=== PATIENT | male | born 1975 | race Caucasian/White ===

== ENCOUNTER 2024-04-21 22:27 | Observation (INO) | payer OTHER, SELFPAY ==
--- NOTE | ~2024-04-21 | CT_ITS ---
EXAMINATION: CTA brain carotid DATE: 04/21/2024 23:28 INDICATION: Altered mental status. TECHNIQUE: Computed tomographic angiography (CTA) of the head was performed without and with 100 mL O mnipaque-350 intravenous contrast. CTA of the neck was performed with intravenous contrast. Automated exposure control and iterative reconstruction technique were employed. The dose-length product was 1 698.29 mGy-cm. Maximum intensity projection and volume rendered 3D-reconstructions were created by ad technologist on a separate workstation. COMPARISON: None. FINDINGS: HEAD CTA: There is no intracranial hemorrhage, acute infarction, or abnormal intracranial mass lesion . The ventricles are normal in size. The orbits are normal. There is mild mucosal thickening in the p aranasal sinuses. The mastoid air cells are normal. The vertebral arteries are codominant. There is n o significant stenosis of basilar artery or the posterior cerebral arteries. There is no significant stenosis of the intracranial internal carotid arteries or anterior or middle cerebral arteries. Anter ior communicating artery is normal. The posterior communicating arteries are normal. There is no aneu rysm. NECK CTA: There is mild scarring at the lung apices. There are no pathologically enlarged lymph nodes . There is no significant stenosis of the vertebral arteries. There is no significant plaque in the p roximal internal carotid arteries. There is 0% stenosis of the proximal right internal carotid artery relative to normal distal artery lumen diameter (NASCET criteria). There is 0% stenosis of the proxi mal left internal carotid artery relative to normal distal artery lumen diameter. There is moderate c ervical spondylosis. IMPRESSION: 1. Normal brain. No aneurysm or significant intracranial arterial stenosis. 2. 0% stenosis of the proximal internal carotid arteries relative to normal distal artery lumen diame ters (NASCET criteria). Reviewed, dictated and finalized at location E. IMPRESSION: 1. Normal brain. No aneurysm or significant intracranial arterial stenosis. 2. 0% stenosis of the proximal internal carotid arteries relative to normal dis mandie artery lumen diameters (NASCET criteria).
--- NOTE | ~2024-04-21 | MR_ITS ---
EXAMINATION: MR brain/brain stem wo/w con DATE: 04/22/2024 09:17 INDICATION: Transient global amnesia TECHNIQUE: Magnetic resonance imaging (MRI) of the brain and brainstem was performed without and with 15 mL Multihance intravenous contrast. Sequences included sagittal and axial T1-weighted SE, axial d iffusion-weighted FS SE, axial 3D SWAN, axial T2-weighted FLAIR, and axial T2-weighted FSE. Postcontr ast axial and coronal T1-weighted SE was obtained. Apparent diffusion coefficient (ADC) maps were cre ated. COMPARISON: None. FINDINGS: There are no areas of restricted diffusion to suggest acute infarction. No intracranial hemorrhage or abnormal intracranial mass lesion. There are no intraparenchymal signal abnormalities seen on the ot her pulse sequences. The ventricles are symmetric and normal in size. There are no abnormal extra-axi al fluid collections. Flow voids are seen in the cerebral arteries on the T2-weighted sequences consi stent with their expected patency. Mild mucoperiosteal thickening in the bilateral ethmoid and fronta l sinuses. Visualized orbits and soft tissues are unremarkable. There are no areas of abnormal enhanc ement on the post contrast images. IMPRESSION: 1. Normal brain. No acute intracranial process. Reviewed, dictated and finalized at location A.
[2024-04-21 22:37] VITALS: BP 130/86; PULSE 69; RESP 20; TEMP 36.5; O2SAT 98
--- NOTE | 2024-04-21 22:57 | ED.AMS ---
HPI - Altered Mental Status General Chief Complaint: Altered Mental Status Stated Complaint: confusion Time Seen by Provider: 04/21/24 22:50 History of Present Illness HPI narrative: 49-year-old male presents emergency department for evaluation for altered mental status. 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 Patient's is still looking for around 10:00 p.m. and ultimately did find him at the cross fit. Patient was confused on while he was still there. Patient continues with repetitive questions. Patient denies any pain or injury. Patient does not recall the class. Patient is confused about current events. states patient is typically very fit and does not abuse drugs or use alcohol. Related Data Home Medications Medication Instructions Recorded Confirmed No Home Medications 04/22/24 04/22/24 Allergies Allergy/AdvReac Type Severity Reaction Status Date / Time No Known Allergies Allergy Verified 04/21/24 22:43 Review of Systems Review of Systems: All systems reviewed & are unremarkable except as noted in HPI and below PMFSH Family History Family History (Updated 04/22/24 @ 02:52 by Lyssa Martinez RN) Grandparent Cerebrovascular accident Hypertension Sibling Diabetes mellitus Hypertension Social History Social History Smoking status: Former smoker Alcohol intake: never Substance use: current Substance use type: marijuana Other substance usage details: SMOKES 2X PER DAY Do You Feel Safe in your Home?: Yes Lack of Transportation: No Lack of Food: Never True Current Housing: I Have Housing Concerned About Future Housing: No Difficulty Paying Gas/Electric Bills: No Difficulty Paying for Meds: No Currently Unemployed: No Education: Bachelor's Degree Difficulty w/ Childcare or Family Care: No Spiritual care concerns: No Exam Narrative: APPEARANCE: Well appearing, no pain, no distress, well-nourished. HEAD: normocephalic, atraumatic. EYES: PERRLA/EOMI, conjunctivae clear. NOSE: Normal no drainage EARS:TMS clear with good light reflex. THROAT: Pharynx clear, no exudate. NECK: Supple. No adenopathy, no masses. RESPIRATORY: Airway patent, respirations nonlabored. Clear to auscultation bilaterally, no rales, rhonchi, wheezing. CARDIOVASCULAR: Regular rate and rhythm without murmurs rubs or gallops. ABDOMINAL: Soft, nontender, nondistended, normal bowel sounds MUSCULOSKELETAL: Moves all extremities. Strength/ROM intact, No edema, No calf tenderness. NEURO: Alert. Cranial nerves II through XII intact. Grossly intact. Patient does have repetitive questioning SKIN: Warm, dry. Normal Color Course Vital Signs Vital signs: Vital Signs Temperature 97.7 F 04/21/24 22:37 Pulse Rate 69 04/21/24 22:37 Respiratory Rate 20 04/21/24 22:37 Blood Pressure 130/86 04/21/24 22:37 Pulse Oximetry 98 04/21/24 22:37 Oxygen Delivery Room Air 04/21/24 22:37 Temperature 97.7 F 04/21/24 22:37 Pulse Rate 70 04/22/24 04:00 Respiratory Rate 20 04/21/24 22:37 Blood Pressure 130/86 04/21/24 22:37 Pulse Oximetry 100 04/21/24 23:52 Oxygen Delivery Room Air 04/22/24 02:57 MDM - Altered Mental Status Differential Diagnosis Differential diagnosis: Likely alcoholic intoxication, altered mental status, delirium, dementia, hypoglycemia, hyponatremia, subarachnoid hemorrhage and sepsis Lab Data Attestation: I reviewed the patient's lab results. 04/21/24 22:56 04/21/24 23:07 Labs: Lab Results 04/21/24 04/21/24 04/21/24 Range/Units 22:56 22:56 22:56 WBC 6.9 (4.5-10.0) K/mm3 RBC 4.68 (4.6-6.20) M/mm3 Hgb 14.6 (14.0-18.0) g/dL Hct 41.2 L (42.0-52.0) % MCV 88.0 (80-100) fl MCH 31.2 (26-34) pg MCHC 35.4 (32-36) g/dl RDW 11.9 (11.5-14.5) % Plt Count 224 (150-375) k/mm3 MPV 9.1 (7.4-10.4) fl Immature Gran % (Auto) 0.1 (
[2024-04-21 23:04] LABS: Basophils Percent Auto 0.4 % (0.2-1.2); Eosinophils Percent Auto 0.1 % (0-4.4); Hematocrit 41.2 % (42.0-52.0); Hemoglobin 14.6 g/dL (14.0-18.0); Immature Granulocyte Absolute 0.01 K/mm3 (0.00-0.031); Immature Granulocyte Percent A 0.1 % (0-0.5); Lymphocytes Absolute Auto 1.57 K/mm3 (0.9-3.2); Lymphocytes Percent Auto 22.9 % (18.3-44.2); Mean Corpuscular HGB Conc 35.4 g/dl (32-36); Mean Corpuscular Hemoglobin 31.2 pg (26-34); Mean Platelet Volume 9.1 fl (7.4-10.4); Monocytes Absolute Auto 0.4 K/mm3 (0.1-0.6); Monocytes Percent Auto 5.4 % (2.6-8.5); Neutrophils Absolute Auto 4.9 K/mm3 (1.3-6.7); Neutrophils Percent Auto 71.1 % (45.5-73.1); Platelet Count Result 224 k/mm3 (150-375); Red Blood Count 4.68 M/mm3 (4.6-6.20); Red Cell Distribution Width 11.9 % (11.5-14.5); White Blood Count 6.9 K/mm3 (4.5-10.0)
[2024-04-21 23:14] LABS: INR 1.1; Partial Thromboplastin Time 26.8 Seconds (22.3-36.8); Prothrombin Time 14.4 Seconds (11.1-14.7)
[2024-04-21 23:16] LABS: Alanine Aminotransferase 34 U/L (6-50); Albumin Level 4.7 g/dL (3.5-5.1); Alkaline Phosphatase 66 U/L (38-126); Anion Gap 9 mmol/L (4-12); Aspartate Amino Transferase 47 U/L (17-59); Bilirubin,Total 1.1 mg/dL (0.2-1.3); Blood Urea Nitrogen 20 mg/dL (9-20); Calcium 9.3 mg/dL (8.4-10.2); Carbon Dioxide 28 mmol/L (22-30); Chloride 100 mmol/L (98-107); Creatine Kinase 358 U/L (55-170); Estimated CRCL calculation 70 ml/min; Estimated Glomerular Filt Rate > 60; Ethanol < 10 mg/dL (<10); Glucose 114 mg/dL (65-110); Potassium 3.8 mmol/L (3.4-5.0); Sodium 137 mmol/L (137-145)
[2024-04-21 23:52] VITALS: O2SAT 100
[2024-04-21 23:59] LABS: Estimated CRCL calculation 61 ml/min; Estimated Glomerular Filt Rate 54
[2024-04-22] VITALS (11 sets, daily range): BP systolic 121–136; BP diastolic 72–81; PULSE 47–70; RESP 14–20; TEMP 35.6–36.7; O2SAT 98–100; BMI 23.6
--- NOTE | 2024-04-22 | ECHO_ITS ---
Patient Info Name: Galileo Fall Age: 49 years : 1975 Gender: Male Ht: 70 in Wt: 164 lbs BSA: 1.92 m2 HR: 63 bpm BP: 121 / 81 mmHg Technical Quality: Good Exam Date: 04/22/2024 10:14 AM Exam Location: Echo Lab Patient Status: Inpatient Admit Date: 04/22/2024 Staff Ordering Physician: Yudelka Padgett APRN Candy Spreader Helper: Judd Rosario RDCS Attending Provider: Argelia Cardenas MD Referring Physician: Dayron BRIAN; Exam Type: CA echo doppler w bubble study Study Info Indications - amnesia Complete two-dimensional, color flow and Doppler transthoracic echocardiogram is performed with agitated saline. Contrast/Agitated Saline Contrast/Ag. Saline: Agitated Saline Amount: 8.00 ml Existing IV Access: Yes Summary 1. Left ventricular chamber dimension is normal. 2. Left ventricular systolic function is normal, estimated at 60-65%. 3. The left ventricular diastolic function is normal. 4. E/e' 6 is not elevated. 5. Left atrial chamber dimension is mildly enlarged. 6. There is trace mitral valve regurgitation. 7. There is trace tricuspid valve regurgitation. 8. No pulmonary hypertension, estimated pulmonary arterial systolic pressure is 20 mmHg. Left Ventricle E/e' 6 is not elevated. Left ventricular chamber dimension is normal. Left ventricular systolic function is normal, estimated at 60-65%. The left ventricular diastolic function is normal. Right Ventricle Right ventricular chamber dimension is normal. Right ventricular systolic function is normal. Left Atria Left atrial chamber dimension is mildly enlarged. Right Atria Right atrial chamber dimension is normal. Atrial Septum Agitated saline injection with valsalva maneuver opacified right side cardiac chambers without shunt to left side cardiac chambers. Intact interatrial septum visualized by 2D and agitated saline imaging. Aortic Valve The aortic valve is trileaflet. There is no aortic valve stenosis. There is no aortic valve regurgitation. Pulmonic Valve There is no pulmonic regurgitation. Mitral Valve There is no mitral valve stenosis. There is trace mitral valve regurgitation. Tricuspid Valve There is trace tricuspid valve regurgitation. No pulmonary hypertension, estimated pulmonary arterial systolic pressure is 20 mmHg. Pericardium/Pleural There is no pericardial effusion. Inferior Vena Cava Normal inferior vena cava with >50% collapse upon inspiration consistent with normal right atrial pressure, 5 mmHg. Aorta The aortic root size at the sinus of Valsalva is normal. Left Ventricular Outflow Tract Name Value Normal LVOT 2D LVOT Diameter 2.1 cm LVOT Doppler LVOT Peak Gradient 3 mmHg LVOT Mean Gradient 2 mmHg LVOT VTI 20 cm LVOT VTI/AV VTI Ratio 0.7 LVOT Stroke Volume 69 ml LVOT CO 3.7 l/min LVOT CI 1.9 l/min/m2 Pulmonic Valve Name Value N
[2024-04-22 00:15] LABS: Influenza A QL RT-PCR Negative (Negative); Influenza B QL RT-PCR Negative (Negative); RSV RNA, RT-PCR Negative (Negative); SARS-CoV-2 RNA PCR Negative (Negative)
[2024-04-22 00:18] LABS: Amphetamine Screen Urine Negative (Negative); Barbiturate Screen Urine Negative (Negative); Benzodiazepines Screen Urine Negative (Negative); Cannabinoid Screen Urine Positive (Negative); Cocaine Screen Urine Negative (Negative); Methadone Screen Urine Negative (Negative); Opiate Screen Urine Negative (Negative); Phencyclidine Screen Urine Negative (Negative)
--- NOTE | 2024-04-22 00:25 | ECG_ITS ---
Test Date: 2024-04-22 00:30:56 Measurements Intervals [place] Rate: 57 P: 49 SC: 151 QRS: 14 QRSD: 102 T: 35 QT: 428 QTc: 418 Interpretive Statements SINUS BRADYCARDIA WITH SINUS ARRHYTHMIA INCOMPLETE RIGHT BUNDLE BRANCH BLOCK BORDERLINE ECG No previous ECG available for comparison Electronically Signed On 04-22-2024 07:13:55 CDT by Graham Krishna D.O.
[2024-04-22 00:33] LABS: Appearance Urine Clear (Clear); Bilirubin Urine Negative (Negative); Blood Urine Negative (Negative); Color Urine Yellow (Yellow); Glucose Urine UA Negative (Negative); Ketones Urine Trace mg/dL (Negative); Leukocyte Esterase Ur Negative LEU/UL (Negative); Nitrate Urine Negative (Negative); Protein Urine Negative (Negative); Specific Grav Ur 1.026 (1.001-1.035); Urobilinogen Urine 0.2 mg/dL (<2.0)
[2024-04-22] MEDS: ACETAMINOPHEN 500 MG TABLET 1000 MG PO (00:37)
[2024-04-22 00:46] LABS: Add Urine Microscopic? NO
--- NOTE | 2024-04-22 02:49 | ADMGEN ---
This patient, Galileo Fall, was admitted to 2 Medical Room 256-. Patient/family oriented to hospital policies and general routines including ID bracelet, bed and alarms, visiting hours, pain management, procedures, bathroom and other care routines, personal items, smoking policy, room service/diet, and visiting hours. Information on how to activate the Rapid Response Team has been discussed. Patient/Family are encouraged to report perceived risks to care and to ask questions if they do not understand what they are told or what they should do.
--- NOTE | 2024-04-22 08:28 | PM.IMHP ---
H&P: HPI History of Present Illness Date/Time: 04/22/24 08:28 Chief Complaint: cofusion Narrative: Mr. Fall is a 49-year-old male with a limited PMHx: He denies any daily a medication use. He was brought in via POV by his who provides most of all the HPI. She reports patient was scheduled to go to [employer] around 1600. Mrs. Fall reports pt did not come home at the time expected, after several hours she decided to attend the last known place of pt. She found him at the [employer] facility, that had closed, and everyone had left, she recalls that pt was confused, trying to find his phone, he was not able to drive his truck(it was parked near the entrance the truck door was open,engine running, pt not inside vehicle) he ws not able to collect his thoughts nor find his phone. Mrs. Fall reports she put pt in her car and while she was driving home, Mr. Fall continued to ask same questions over and over, he was not able to recall events prior to going to [facility], nor was he able to explain anything that occurred during his [employer] class, this is when she decided to have pt evaluated in the emergency department. ED work-up reveals: Upon ED arrival patient continues with repetitive questions and confusion unable to recall activities occurring at [facility]. CT/CTA of the brain and carotid was unrevealing UDS was positive for cannabinoids, EKG showed bradycardia. Vitals stable, total creatinine elevated 358, UA unremarkable, UDS positive for cannabinoids. Review of Systems Review of Systems: All systems reviewed & are unremarkable except as noted in HPI and below [facility] Family History Family History Grandparent Cerebrovascular accident Hypertension Sibling Diabetes mellitus Hypertension Social History Social History Smoking status: Former smoker Alcohol intake: never Substance use: current Substance use type: marijuana Other substance usage details: SMOKES 2X PER DAY Do You Feel Safe in your Home?: Yes Lack of Transportation: No Lack of Food: Never True Current Housing: I Have Housing Concerned About Future Housing: No Difficulty Paying Gas/Electric Bills: No Difficulty Paying for Meds: No Currently Unemployed: No Education: Bachelor's Degree Difficulty w/ Childcare or Family Care: No Spiritual care concerns: No Meds Home Medications and Allergies Home Medications Medication Instructions Recorded Confirmed Type No Home Medications 04/22/24 04/22/24 History Allergies Allergy/AdvReac Type Severity Reaction Status Date / Time No Known Allergies Allergy Verified 04/22/24 15:35 Vital Signs Vital Signs - 24 hr 04/21/24 22:37 04/21/24 23:52 04/22/24 02:57 Temperature 97.7 F Pulse Rate 69 Respiratory Rate 20 Blood Pressure 130/86 Pulse Oximetry 98 100 Oxygen Delivery Room Air Room Air Room Air 04/22/24 04:00 04/22/24 06:00 04/22/24 06:05 Temperature 96.4 F L 96.4 F L Pulse Rate 70 50 L 51 L Respiratory Rate 20 20 Blood Pressure 125/74 129/72 Pulse Oximetry 100 100 Oxygen Delivery 04/22/24 06:15 04/22/24 06:00 Temperature 96.0 F L 96.4 F L Pulse Rate 63 50 L Respiratory Rate 20 20 Blood Pressure 121/81 125/74 Pulse Oximetry 98 100 Oxygen Delivery Exam Narrative: General: A well-developed, nontoxic-appearing gentlemen, sitting up in bed. HEENT: PERRL, EOMI. Oral mucosa moist. Neck: Supple. No midline cervical tenderness. Respiratory: Respirations are non- labored and lungs are clear to auscultation bilaterally. Cardiovascular: Regular rate and rhythm with S1-S2. Gastrointestinal: Abdomen is soft, non-tender, and non-distended with positive bowel sounds. Skin: Warm and dry. No rash or lesions on limited exam. Extremities: No cyanosis, clubbing, or edema. Radial and pedal pulses intact. Neurological: Alert an
--- NOTE | 2024-04-22 09:55 | WPDNEURCNPN ---
Assessment and Plan Assessment and plan (1) Episode of confusion: Code(s): R41.0 - Disorientation, unspecified Status: Acute Plan Galileo Fall is a 49 year old male with no significant past medical history presenting for evaluation of amnesia. Differential diagnosis includes transient global amnesia vs TIA vs focal seizure. UDS was positive for cannabinoids so drug effect is also possible. MRI brain was normal. - Obtain echo with bubble study - Will check hypercoagulability labs given his younger age - Obtain routine EEG -- could be done as outpatient if patient is discharged before Wednesday - As precaution, will have him start a baby aspirin 81mg daily - Check LDL, if over 70, start statin - Discussed no driving until he is event free for at least six months Consult date: 04/22/24 Reason for consult: Amnesia HPI: Galileo Fall is a 49 year old male with no significant past medical history presenting for evaluation of amnesia. Per chart review, patient left for his [employer] class around 1700 on 04/21. However, he did not come home afterwards at the expected time. was looking for him around 2200 and ultimately found him at the [employer] class. He was confused as to why he was still there. He was asking repetitive questions. He does not have any recollection of the class. In the ER patient was asking repetitve questions still. His BP was in the 130s systolic. CT and CTA of the brain/carotid was unrevealing. His UDS was positive for cannabinoids. EKG showed sinus bradycardia. MRI brain done this morning was read as normal. No family history of stroke/[place] at early age. No family history of epilepsy. Patient was still somewhat confused this morning, but seems to improving throughout the day. Review of Systems Review of Systems: All systems reviewed & are unremarkable except as noted in HPI and below PMFSH Family History Family History Grandparent Cerebrovascular accident Hypertension Sibling Diabetes mellitus Hypertension Social History Social History Smoking status: Former smoker Alcohol intake: never Substance use: current Substance use type: marijuana Other substance usage details: SMOKES 2X PER DAY Do You Feel Safe in your Home?: Yes Lack of Transportation: No Lack of Food: Never True Current Housing: I Have Housing Concerned About Future Housing: No Difficulty Paying Gas/Electric Bills: No Difficulty Paying for Meds: No Currently Unemployed: No Education: Bachelor's Degree Difficulty w/ Childcare or Family Care: No Spiritual care concerns: No Meds Home Medications and Allergies Home Medications Medication Instructions Recorded Confirmed Type No Home Medications 04/22/24 04/22/24 History Allergies Allergy/AdvReac Type Severity Reaction Status Date / Time No Known Allergies Allergy Verified 04/21/24 22:43 Vital Signs Vital Signs - 24 hr 04/21/24 22:37 04/21/24 23:52 04/22/24 02:57 Temperature 36.5 C Pulse Rate 69 Respiratory Rate 20 Blood Pressure 130/86 Pulse Oximetry 98 100 Oxygen Delivery Room Air Room Air Room Air 04/22/24 04:00 04/22/24 06:00 04/22/24 06:05 Temperature 35.8 C L 35.8 C L Pulse Rate 70 50 L 51 L Respiratory Rate 20 20 Blood Pressure 125/74 129/72 Pulse Oximetry 100 100 Oxygen Delivery 04/22/24 06:15 04/22/24 06:00 04/22/24 08:40 Temperature 35.6 C L 35.8 C L Pulse Rate 63 50 L Respiratory Rate 20 20 Blood Pressure 121/81 125/74 Pulse Oximetry 98 100 98 Oxygen Delivery Room Air Exam Const: General: comfortable, no acute distress and well nourished Nutritional Appearance: well nourished Orientation/consciousness: oriented to person, oriented to place and oriented to time HENMT: Head: normocephalic and atraumatic Ears: hearing grossly normal bilaterally and external ears normal
[2024-04-22 13:36] LABS: LDL Cholesterol Direct 155 mg/dL
[2024-04-22 22:09] LABS: D Dimer 0.31 ug/mL (<0.48)
[2024-04-23] VITALS: PULSE 49
[2024-04-23] MEDS: ONDANSETRON INJ 4 MG/2 ML VIAL IV PUSH (03:07)
[2024-04-23] MEDS: ACETAMINOPHEN 500 MG TABLET 1000 MG PO (03:07)
[2024-04-23 04:00] VITALS: PULSE 55
[2024-04-23 06:00] VITALS: BP 112/69; PULSE 60; RESP 18; TEMP 37.1; O2SAT 98
[2024-04-23 08:00] VITALS: PULSE 56
[2024-04-23 08:48] VITALS: PULSE 51; RESP 16; O2SAT 98
--- NOTE | 2024-04-23 09:30 | PM.IMPN ---
Progress Note: A&P Assessment and Plan (1) Amnesia, global, transient: Code(s): G45.4 - Transient global amnesia Status: Acute Assessment and Plan: Likely 2nd to concussion. Video was found patient dropped weight at the gym and hit his head on the ground. Some concern for seizure after fall. Reports a headache earlier with light sensitivity, mild - neurology consulted, appreciate plan and recommendation -initiate safety precautions -continue telemetry monitoring -echo with bubble normal -lipid panel normal -likely can stop aspirin, discussed with neuro -neurology discussed with patient and spouse no driving for at least 6 months, s/p event free. (2) Post-concussion headache: Code(s): G44.309 - Post-traumatic headache, unspecified, not intractable Status: Acute Assessment and Plan: Reports headache with light sensitivity. Like concussion as noted above Plan Continue home medications: Denies any home medication use VTE Prophylaxis: SCDs DIET: Regular diet Anticipated hospital stay: > 2 days Code Status: Full Subjective Date/time seen: 04/23/24 09:30 Interval history: Family found video surveillance at the gym and patient hit his head. Also question of seizure afterwards. Neurology planning to see him this morning. Patient anxious to go home, reports headache this morning some eye sensitivity, otherwise mental status okay ambulating normally. Review of Systems Review of Systems: Nausea and headache, especially when looking at screens, no other complaints All systems reviewed & are unremarkable except as noted in HPI and below Exam Narrative: General: A well-developed, nontoxic-appearing gentlemen, sitting up in bed. HEENT: PERRL, EOMI. Oral mucosa moist. Neck: Supple. No midline cervical tenderness. Respiratory: Respirations are non- labored and lungs are clear to auscultation bilaterally. Cardiovascular: Regular rate and rhythm with S1-S2. Gastrointestinal: Abdomen is soft, non-tender, and non-distended with positive bowel sounds. Skin: Warm and dry. No rash or lesions on limited exam. Extremities: No cyanosis, clubbing, or edema. Radial and pedal pulses intact. Neurological: Alert and oriented. Cranial nerves 2-12 are grossly intact. No gross focal deficits to casual conversation. Psychiatric: Pleasant and cooperative with normal mood and affect. Unable to describe all events that occurred yesterday and this morning, but mental status normal otherwise. Walking normally Objective Data Vital Signs Vital Signs: Vital Signs - 24 hr 04/22/24 12:00 04/22/24 16:00 04/22/24 14:00 Temperature 97.8 F Pulse Rate 54 L 47 L 60 Respiratory Rate 14 Blood Pressure 121/79 Pulse Oximetry 98 Oxygen Delivery Fraction of Inspired Oxygen 04/22/24 22:00 04/22/24 20:00 04/23/24 00:00 Temperature 98.1 F Pulse Rate 53 L 69 49 L Respiratory Rate 18 Blood Pressure 136/79 Pulse Oximetry 99 Oxygen Delivery Fraction of Inspired Oxygen 04/23/24 04:00 04/23/24 06:00 04/23/24 08:00 Temperature 98.7 F Pulse Rate 55 L 60 56 L Respiratory Rate 18 Blood Pressure 112/69 Pulse Oximetry 98 Oxygen Delivery Fraction of Inspired Oxygen 04/23/24 08:48 Temperature Pulse Rate 51 L Respiratory Rate 16 Blood Pressure Pulse Oximetry 98 Oxygen Delivery Room Air Fraction of Inspired Oxygen 21 Intake/Output Intake/Output: Intake & Output 04/20/24 04/21/24 04/22/24 04/23/24 23:59 23:59 23:59 23:59 Intake Total 240 Output Total 3 Balance 240 -3 Meds/Results Medications: Active Medications Generic Name Dose Route Start Last Admin Trade Name Freq PRN Reason Stop Dose Admin Acetaminophen 1,000 mg 04/23/24 02:53 04/23/24 03:07 Acetaminophen 500 Mg Tablet PO 1,000 mg Q6H PRN Administration Mild Pain (1-3) or Fever Aspirin 81 mg 04/23/24 08:00 04/23/24 08:53 Aspirin 81 Mg
--- NOTE | 2024-04-23 11:26 | PM.DS ---
DS: Admitting Diagnosis Discharge Date 04/23/24 Admitting Diagnosis Altered Mental Status, amnesia DS: Summary Hospital Course Reason for hospitalization: Acute confusion, amnesia Hospital Course: Patient was admitted with confusion, amnesia, likely 2nd to concussion. Video was found and patient dropped weight at the gym, and hit his head on the ground. Some concern for seizure after fall. Afterwards reported headache nausea and light sensitivity, resolved with Zofran and Tylenol. Mental status returned to baseline prior to discharge. Echo with bubble was normal. Neurology was consulted, recommended no driving for at least 6 months until event free. Stopped aspirin signs documented head trauma is cause of symptoms. Works at home so can continue to work. Patient will follow-up with his PCP at the [place] followed by neurology. EEG was ordered in 2 weeks. Can have outpatient lipid profile fasting. Not fasting her admissions and difficult to interpret, LDL slightly elevated 155. Status at Discharge Cognitive/behavioral status at discharge: Alert and oriented, up in room, feeling well Time Spent with Patient Time attestation: Total time spent providing and/or coordinating discharge services: 58 minutes. Spoke with Neurology, nurse, and patient and twice Exam Narrative: General - Awake and alert. No acute distress Eyes - PERRLA, EOM intact ENT - No thrush, No erythema Neck - No noticeable or palpable swelling Lymph Nodes - No lymphadenopathy Cardiovascular - RRR no m/r/g, no JVD Lungs: Clear to auscultation, No wheezing, use of accessory muscles, no crackles or wheezes. Skin - Skin warm and dry, no wounds or rashes Abdomen - Normal bowel sounds, abdomen soft and nontender Extremities - No edema, cyanosis or clubbing Musculoskeletal - 5/5 strength, normal range of motion, no swollen or erythematous joints. Neurological ? Alert and oriented x 3, CN 2-12 grossly intact. Psych: Normal mood and affect DS: Data Data Completed and Pending Labs on day of discharge: Labs from last 24 hours 04/22/24 12:56 D-Dimer 0.31 LA PTT Screen Pending dRVVT Screen Pending Lupus Anticoag Interp Pending Prot C Funct Activity Pending APC Resistance Ratio Pending Protein S Activity Pending Antithrombin III Activ Pending Factor V Leiden Mutat Pending Factor V Mutat Interp Pending Factor VIII Activity Pending Factor IX Activity Pending Factor X Chromogenic Pending LDL Cholesterol Direct 155 Lipoprotein (a) Pending Homocysteine Pending Phosphatidylserine IgG Pending Phosphatidylserine IgA Pending Phosphatidylserine IgM Pending Anti-Cardiolipin IgG Ab Pending Anti-Cardiolipin IgA Ab Pending Anti-Cardiolipin IgM Ab Pending MTHFR DNA Mutation Anal Pending MTHFR Interpretation Pending Prothrombin Gene Mutate Pending Prothromb Gene Comment Pending Discharge Plan Discharge Attending physician on discharge: Goyo Bird Consulting providers: Val Wyatt Discharging Clinician: Malena Herron Anticipated Discharge Date/Time: 04/23/24 12:08 Patient Disposition: Home, Self-Care Activity: may shower and no driving Diet: regular Wound Care Instructions: follow printed instructions Discharge Instructions: Seizure precautions: No driving for 6 months in [place]. Other safety precautions include other activities if you were to lose consciousness suddenly (for example: swimming-showers are ok, jaccuzis and baths would have a risk of drowning, don't climb ladders or be high places, open flames). Your risk of another seizure decreases with time. You will follow up with your PCP and neurology. An EEG was ordered outpatient here or you can follow up at the [place] for imaging. Stand Alone Forms: General Discharge Information, Work/School Release IP Follow-up/Referrals: UNKNOWN,DOCTOR [Primary Care Provider] - Call for Appointment (Follow up with PCP in 1-2 weeks. You will also need f
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
[2024-04-24 12:24] LABS: Lipoprotein A 32 nmol/L
[2024-04-25 18:38] LABS: Factor VIII Activity 58 % normal (50-180)
[2024-04-25 19:48] LABS: Lupus dRVVT Screen 41 sec (< OR = 45); PTT-LA Screen 35 sec (< OR = 40)
[2024-04-26 02:49] LABS: APC Ratio 5.5 ratio (>=2.1)
[2024-04-26 03:19] LABS: Anti Cardio Antibody IgM <2.0 MPL-U/mL; Anti Cardiolipin Antibody IgA <2.0 APL-U/mL; Anti Cardiolipin Antibody IgG <2.0 GPL-U/mL
[2024-04-27 05:34] LABS: Antithrombin III Activity 116 % normal (80-135)
[2024-05-01 14:48] LABS: Factor V (Leiden) Mutation NEGATIVE
== END 2024-04-23 11:43 | disposition home or self-care (01) ==
LOC: ANHED 04-22 00:42 → ANH2MED 04-23 06:56
PROVIDERS: Student in an Organized Health Care Education/Training Program; Admitting Provider Internal Medicine; Emergency Provider Emergency Medicine; Visit Provider Nurse Practitioner Acute Care
DX: G45.4 Transient global amnesia (principal); G44.309 Post-traumatic headache, unspecified, not intractable; Z87.891 Personal history of nicotine dependence; F12.90 Cannabis use, unspecified, uncomplicated
CPT/HCPCS: 36415; 70496; 70498; 70553; 80053; 80307; 81003; 81240; 81241; 81291; 82550; 83090; 83695; 83721; 85025; 85240; 85250; 85260; 85300; 85303; 85306; 85307; 85380; 85610; 85613; 85730; 86147; 87637; 93005; 93306; 96374; 96375; 99285; A9270; A9577; G0378; J2405; Q9967